=== PATIENT | female | born 1965 | race Caucasian/White ===

== ENCOUNTER → 2016-03-19 | Outpatient (CLI) | payer OTHER ==
--- NOTE | 2016-03-19 12:04 | US ---
EXAMINATION TYPE: US abdomen complete DATE OF EXAM: 03/19/2016 10:49 AM COMPARISON: NONE CLINICAL HISTORY: 50-year-old female with constipation, abdominal pain TECHNIQUE: Multiple sonographic images of the abdomen were obtained. FINDINGS: Liver Length: 16.6cm Gallbladder Wall: 2.9 mm CBD: 0.4cm Spleen: 7.9cm Right Kidney: 10.5 x 4.2 x 5.3cm Left Kidney: 11.9 x 3.8 x 4.4cm Pancreas: visualized portions appear wnl Liver: Upper limits of normal in size with overall homogeneous echotexture. There is a mildly comple x cyst measuring 2.1 cm with some internal septations and posterior through transmission centrally in the liver. Gallbladder: No abnormal gallbladder distention, wall thickening, pericholecystic fluid, or shadowin g calculi. Evidence for sonographic Moss's sign: no CBD: Within normal limits. Spleen: Within normal limits. Right Kidney: No hydronephrosis. Left Kidney: No hydronephrosis. There is a 7 x 6 x 7 mm hyperechoic lesion at the lower pole. Upper IVC: Within noWithin normal limits.rta: No aneurysm. IMPRESSION: 1. Liver at the upper limits of normal in size. A 2.1 cm mildly complex cyst is present centrally in the liver. This can be reassessed in 6 months as a conservative measure. 2. A 7 mm hyperechoic lesion in the lower pole left kidney. This may represent an AML. As RCC can unc ommonly present as an echogenic lesion on ultrasound, a 3-6 month follow-up ultrasound is recommended to reassess this area.
== END | disposition home or self-care (01) ==
LOC: RADUSWWP 10:00
PROVIDERS: ATTEND Internal Medicine
DX: K76.89 Other specified diseases of liver (principal); N28.89 Other specified disorders of kidney and ureter
CPT/HCPCS: 76700

== ENCOUNTER → 2016-04-01 | Outpatient (CLI) | payer OTHER ==
--- NOTE | 2016-04-01 11:30 | CT ---
EXAMINATION TYPE: CT abdomen pelvis w con DATE OF EXAM: 04/01/2016 9:06 AM COMPARISON: Ultrasound abdomen 19 March 2016 HISTORY: Hepatomegaly and Kidney lesion CT DLP: 1318 mGycm Automated exposure control for dose reduction was used. TECHNIQUE: Helical acquisition of images from the lung bases through the pelvis have been completed. CONTRAST: Performed with Oral Contrast and with IV Contrast, patient injected with 100 ml mL of Omnipaque 300. FINDINGS: LUNG BASES: No significant abnormality is appreciated. AORTA: No significant abnormality is appreciated. LIVER/GB: Cystic focus within the left lobe measures 2.5 cm. Liver is enlarged, there is low attenuat ion likely due to fatty infiltration. Gallbladder is normal. PANCREAS: No significant abnormality is seen. SPLEEN: No significant abnormality is seen. ADRENALS: No significant abnormality is seen. KIDNEYS: No significant abnormality is seen., Follow-up as described in report The lesion described o n ultrasound report is not seen definitively REPRODUCTIVE ORGANS: Intrauterine contraceptive device appears well placed. Adnexal structures within normal limits. BOWEL: There is retained fecal debris present. Appendix is not seen. Sigmoid colon shows some wall t hickening, difficult to exclude and narrowing, mucosal lesion. The appendix is normal. Cecum somewhat redundant. FREE AIR: No Free Air visible ASCITES: None visible. PELVIC ADENOPATHY: None visualized. Possible Komal duct cyst present RETROPERITONEAL ADENOPATHY: No Retroperitoneal Adenopathy visible. URINARY BLADDER: No significant abnormality is seen. OSSEOUS STRUCTURES: Osteoarthritic changes present in the right hip greater than left. Degenerative disc changes are mild, present in the visualized spine. IMPRESSION: CORRELATE FOR FECAL STASIS. DIFFICULT TO EXCLUDE A MUCOSAL LESION IN THE SIGMOID COLON, CONSIDER ENDO SCOPY IF THIS HAS NOT BEEN PERFORMED. FATTY INFILTRATION OF THE LIVER, HEPATOMEGALY. POSTPROCEDURAL C HANGES. Additional findings above.
== END | disposition home or self-care (01) ==
LOC: RADCTMAIN 08:24
PROVIDERS: ATTEND Internal Medicine
DX: R16.0 Hepatomegaly, not elsewhere classified (principal); K76.0 Fatty (change of) liver, not elsewhere classified; Z98.890 Other specified postprocedural states
CPT/HCPCS: 74177; Q9967

== ENCOUNTER → 2016-10-12 | Outpatient (CLI) | payer OTHER ==
--- NOTE | 2016-10-13 09:24 | MM ---
Reason for exam: screening (asymptomatic). Last mammogram was performed 1 year and 5 months ago. History: Family history of breast cancer in maternal aunt. Benign left US cyst aspiration of the left breast, June 27, 2010. Cyst aspiration of the left breast, 2006. Took hormonal contraceptives for 3 years beginning at age 14. Physical Findings: A clinical breast exam by your physician is recommended on an annual basis and results should be correlated with mammographic findings. MG 3D Screening Mammo W/Cad Bilateral CC and MLO view(s) were taken. Prior study comparison: May 15, 2015, bilateral MG screening mammo w CAD. August 25, 2013, bilateral MG screening mammo w CAD. July 27, 2012, CAD bilateral diagnostic mammogram. The breast tissue is extremely dense which could obscure a lesion on mammography. There is no discrete abnormality. ASSESSMENT: Negative, BI-RAD 1 RECOMMENDATION: Routine screening mammogram of both breasts in 1 year.
== END | disposition home or self-care (01) ==
LOC: RADMAMWWP 07:43
PROVIDERS: ATTEND Obstetrics & Gynecology
DX: Z12.31 Encounter for screening mammogram for malignant neoplasm of breast (principal)
CPT/HCPCS: 77063; G0202

== ENCOUNTER → 2017-03-29 | Outpatient (CLI) | payer OTHER ==
--- NOTE | 2017-04-06 12:50 | HM ---
HOLTER MONITOR REPORT [facility] [place] DATE OF SERVICE: 03/29/2017. INDICATION OF THE STUDY: Arrhythmia. The patient was monitored for 24 hours. The baseline rhythm appeared to be a sinus mechanism with a minimum heart rate of 52 beats per minute, max heart rate 151 beats per minute and average heart rate of 78 beats per minute. Ventricular ectopic events were not reported during this 24 hour monitoring. Supraventricular ectopic events were presented in less than 1% total beat count and presented as a single PAC, in couplets, triplets, and the patient had 3 runs of nonsustained SVT with the longest one of less than 1 minute at heart rate of 141 beats per minute. No evidence of any advanced AV block. No evidence of sinus pause or sinus arrest seen. CONCLUSION: 1. Sinus rhythm as a baseline mechanism. 2. No evidence of any ventricular ectopic events. 3. Rare supraventricular ectopic events. 4. The patient had multiple episodes of SVT presented with the longest one of less than 1 minute at a heart rate of 141 beats per minute. 5. There is no evidence of sinus pause or sinus arrest. MMODL / IJN: [id number] /
== END | disposition home or self-care (01) ==
LOC: RADECHMAIN 12:25
PROVIDERS: ATTEND Internal Medicine
DX: I47.1 Supraventricular tachycardia (principal); I49.3 Ventricular premature depolarization
CPT/HCPCS: 93225; 93226

== ENCOUNTER → 2017-11-10 | Outpatient (CLI) | payer OTHER ==
--- NOTE | 2017-11-12 11:55 | MM ---
Reason for exam: screening (asymptomatic). Last mammogram was performed 1 year and 1 month ago. History: Family history of breast cancer in maternal aunt. Benign left US cyst aspiration of the left breast, June 27, 2010. Cyst aspiration of the left breast, 2006. Took hormonal contraceptives for 3 years beginning at age 14. Physical Findings: A clinical breast exam by your physician is recommended on an annual basis and results should be correlated with mammographic findings. MG Screening Mammo w CAD Bilateral CC and MLO view(s) were taken. Prior study comparison: October 12, 2016, bilateral MG 3d screening mammo w/cad. May 15, 2015, bilateral MG screening mammo w CAD. The breast tissue is extremely dense which could obscure a lesion on mammography. No significant changes when compared with prior studies. ASSESSMENT: Benign, BI-RAD 2 RECOMMENDATION: Routine screening mammogram of both breasts in 1 year.
== END | disposition home or self-care (01) ==
LOC: RADMAMWWP 12:30
PROVIDERS: ATTEND Obstetrics & Gynecology
DX: Z12.31 Encounter for screening mammogram for malignant neoplasm of breast (principal); Z80.3 Family history of malignant neoplasm of breast
CPT/HCPCS: 77067

== ENCOUNTER → 2018-01-12 | Outpatient (CLI) | payer OTHER ==
[2018-01-12 10:50] LABS: Basophils % (A) 1 %; Eosinophils # (A) 0.2 k/uL (0-0.7); Eosinophils % (A) 7 %; HCT 39.1 % (34.0-46.0); HGB 13.2 gm/dL (11.4-16.0); Lymphocytes # (A) 1.2 k/uL (1.0-4.8); Lymphocytes % (A) 35 %; MCH 31.3 pg (25.0-35.0); MCHC 33.7 g/dL (31.0-37.0); Mean Platelet Volume 6.5; Monocytes # (A) 0.2 k/uL (0-1.0); Monocytes % (A) 6 %; Neutrophils # (A) 1.8 k/uL (1.3-7.7); Neutrophils % (A) 49 %; Platelet Count 348 k/uL (150-450); RDW 12.6 % (11.5-15.5); WBC 3.6 k/uL (3.8-10.6)
[2018-01-12 17:16] LABS: Albumin 4.4 g/dL (3.80-4.90); Albumin/Globulin Ratio 2.32 (1.20-2.10); Anion Gap 7.8 mmol/L (4.00-12.00); Calcium 9.3 mg/dL (8.7-10.3); Carbon Dioxide 26.2 mmol/L (21.6-31.8); Globulin 1.9 g/dL (2.1-3.7); Potassium 4.3 mmol/L (3.5-5.5); Total Bilirubin 0.4 mg/dL (0.3-1.2); Total Protein 6.3 g/dL (6.2-8.2)
[2018-01-12 18:25] LABS: Cancer Antigen 19-9 7.3 U/mL (0.0-34.9)
== END | disposition home or self-care (01) ==
LOC: LABWHC1 09:58
PROVIDERS: ATTEND Internal Medicine Gastroenterology
DX: K76.89 Other specified diseases of liver (principal)
CPT/HCPCS: 36415; 80053; 82105; 82378; 85025; 86301; 86304

== ENCOUNTER → 2018-04-05 | Outpatient (CLI) | payer OTHER ==
[2018-04-05 16:20] LABS: HCT 39.3 % (34.0-46.0); HGB 13.3 gm/dL (11.4-16.0); MCH 31.5 pg (25.0-35.0); MCHC 33.7 g/dL (31.0-37.0); MCV 93.4 fL (80.0-100.0); Mean Platelet Volume 6.5; Platelet Count 371 k/uL (150-450); RBC 4.21 m/uL (3.80-5.40); RDW 12.7 % (11.5-15.5); WBC 5.5 k/uL (3.8-10.6)
[2018-04-05 16:25] LABS: Potassium 4.1 mmol/L (3.5-5.1)
== END ==
LOC: LABPAT 15:40
PROVIDERS: ATTEND Internal Medicine Interventional Cardiology
DX: Z01.812 Encounter for preprocedural laboratory examination (principal); I47.1 Supraventricular tachycardia; R07.89 Other chest pain
CPT/HCPCS: 36415; 80051; 82565; 84520; 85027

== ENCOUNTER 2018-04-19 06:35 | Day surgery (SDC) | payer OTHER ==
[2018-04-18 12:19] VITALS: BMI 24.7
[~2018-04-19 06:35] MED LIST: ALPRAZolam 0.25 MG TAB PO PRN; ALPRAZolam 0.5 MG TAB PO PRN; ASPIRIN 325 MG TAB PO STA; ATORVASTATIN 80 MG TAB PO STA; NITROGLYCERIN SL TABS 0.4 MG TAB SUBLINGUAL PRN; SODIUM CHLORIDE 0.9% 1,000 ML in EMPTY BAG 1 BAG IV ONE
[2018-04-19 07:14] VITALS: TEMP 97.7
[2018-04-19] MEDS ORDERED: VERAPAMIL 2.5 MG/ML 2 ML AMP ONE (07:42)
[2018-04-19] MEDS ORDERED: HEPARIN SODIUM 1,000 UN/ML (10ML VL) ONE (07:42)
[2018-04-19] MEDS ORDERED: LIDOCAINE 1% INJ 10MG/ML (20 ML MDV) ONE (07:45)
[2018-04-19] MEDS: MIDAZOLAM 2 MG/2 ML VIAL IVP ONE ×2 (07:53→07:56)
[2018-04-19] MEDS ORDERED: LIDOCAINE 1% INJ 10MG/ML (20 ML MDV) SQ ONE ×2 (07:54)
[2018-04-19] MEDS ORDERED: VERAPAMIL SYRINGE (5 MG/10 ML) INTRAARTER ONE (07:55)
[2018-04-19] MEDS ORDERED: HEPARIN SODIUM 1,000 UN/ML (10ML VL) IV ONE (07:58)
[2018-04-19] MEDS ORDERED: IOPAMIDOL-370 100ML BTL INJ ONE (08:02)
[2018-04-19] MEDS ORDERED: RX INFO: IV CONTRAST WAS GIVEN 1 EACH MISC MISCELLANE PRN (08:09)
[2018-04-19] MEDS ORDERED: SODIUM CHLORIDE 0.9% 1,000 ML IV SCH (08:15)
--- NOTE | 2018-04-19 09:06 | LTR ---
April 19, 2018 Re: Concetta Bowman Dear Dr. Matias: Ms. Concetta Bowman underwent a heart catheterization today and that revealed mild nonobstructive coronary artery disease. I want to thank you for allowing me to participate in her care and please do not hesitate to call for question or concern. Sincerely, MD SHADIA Ingram / MCKAYLA: [id number] /
--- NOTE | 2018-04-19 09:06 | CC ---
CARDIAC CATHETERIZATION REPORT DATE OF SERVICE: 04/19/2018 PERFORMING PHYSICIAN: Joel Lerma MD, Chemical Processor. PROCEDURE PERFORMED: 1. Selective right and left coronary angiogram. 2. Left heart catheterization. INDICATION: This is a pleasant 52-year-old female patient who was referred for further evaluation of chest discomfort. She underwent a myocardial perfusion imaging stress test and that revealed ischemia and because of that, a heart catheterization was advised. APPROACH: Right radial artery. COMPLICATION: None. LEVEL OF SEDATION: Moderate with sedation length of 14 minutes. PROCEDURE DESCRIPTION: After obtaining an informed consent, the patient was brought to the cardiac laborer tanbark. The right radial artery was cannulated using micropuncture technique and a micropuncture wire passed easily, then I placed a 5-Amharic sheath in the right radial artery. After that, I did give the patient 2 mg of verapamil IA and 8000 units of heparin IV. Subsequently, selective right and left coronary angiogram performed using JR4 and JL3.5 catheters. Left heart catheterization was performed using the JR4, which flipped into the LV, then I did pullback across the aortic valve. The procedure was completed without any complication. CORONARY ANGIOGRAM: The right coronary artery is a medium caliber vessel and it is a dominant vessel. It is angiographically normal. The left main is angiographically normal, it bifurcates into left circumflex, and left anterior descending artery. The left circumflex is a large caliber vessel. It is a nondominant vessel. The proximal circumflex appeared to be angiographically normal and gives rise into the first OM branch which is a large caliber vessel, seems to be angiographically normal. The mid circumflex is normal and the circumflex distally appeared to be normal and gives rise into a second OM branch which appeared to be angiographically normal and the circumflex distally appeared to be normal as well. The LAD, the proximal LAD has eccentric lesion, appeared to be in the range of 30%. The mid LAD appeared to be normal and the LAD distally appeared to be normal. The LAD gives rise into two diagonal branches, they appeared to be angiographically normal. HEMODYNAMICS: The left ventricular end-diastolic pressure was about 12 mmHg without gradient across the aortic valve. CONCLUSION: 1. Mild nonobstructive disease involving the proximal LAD. 2. Normal left ventricular end-diastolic pressure. POSTPROCEDURE MANAGEMENT: 1. Medical treatment. 2. Follow up with the patient. MMODL / IJN: [id number] /
[2018-04-19 09:47] VITALS: RESP 16
[2018-04-19] MEDS ORDERED: ACETAMINOPHEN TAB 500 MG TAB PO STA (11:19)
[2018-04-19 14:36] VITALS: BP 118/68; PULSE 56
== END 2018-04-19 13:10 | disposition home or self-care (01) ==
LOC: CATHCVL 06:35
PROVIDERS: ATTEND Internal Medicine Interventional Cardiology
DX: I25.110 Atherosclerotic heart disease of native coronary artery with unstable angina pectoris (principal); I47.1 Supraventricular tachycardia; Z79.890 Hormone replacement therapy; Z79.51 Long term (current) use of inhaled steroids; Z79.899 Other long term (current) drug therapy
CPT/HCPCS: 93458; C1894; J2250; J2001; J1644; Q9967

== ENCOUNTER → 2018-12-16 | Outpatient (CLI) | payer OTHER ==
--- NOTE | 2018-12-19 09:44 | MM ---
Reason for exam: screening (asymptomatic). Last mammogram was performed 1 year and 1 month ago. History: Family history of breast cancer in maternal aunt. Benign left US cyst aspiration of the left breast, June 27, 2010. Cyst aspiration of the left breast, 2006. Took hormonal contraceptives for 3 years beginning at age 14. Taking estrogen for 3 years. Physical Findings: A clinical breast exam by your physician is recommended on an annual basis and results should be correlated with mammographic findings. MG Screening Mammo w CAD Bilateral CC and MLO view(s) were taken. XCCL view(s) were taken of the right breast. Prior study comparison: November 10, 2017, bilateral MG screening mammo w CAD. October 12, 2016, bilateral MG 3d screening mammo w/cad. The breast tissue is extremely dense which could obscure a lesion on mammography. No significant changes when compared with prior studies. ASSESSMENT: Benign, BI-RAD 2 RECOMMENDATION: Routine screening mammogram of both breasts in 1 year.
== END | disposition home or self-care (01) ==
LOC: RADMAMWWP 16:33
PROVIDERS: ATTEND Obstetrics & Gynecology
DX: Z12.31 Encounter for screening mammogram for malignant neoplasm of breast (principal); Z80.3 Family history of malignant neoplasm of breast
CPT/HCPCS: 77067

== ENCOUNTER → 2020-05-02 | Outpatient (CLI) | payer OTHER ==
--- NOTE | 2020-05-03 13:26 | MM ---
Reason for exam: screening (asymptomatic). Last mammogram was performed 1 year and 4 months ago. History: Patient is postmenopausal. Family history of breast cancer in maternal aunt. Benign left US cyst aspiration of the left breast, June 27, 2010. Cyst aspiration of the left breast, 2006. Took hormonal contraceptives for 3 years beginning at age 14. Taking estrogen for 3 years. Physical Findings: A clinical breast exam by your physician is recommended on an annual basis and results should be correlated with mammographic findings. MG Screening Mammo w CAD Bilateral CC and MLO view(s) were taken. Prior study comparison: December 16, 2018, bilateral MG screening mammo w CAD. November 10, 2017, bilateral MG screening mammo w CAD. The breast tissue is heterogeneously dense. This may lower the sensitivity of mammography. There is no discrete abnormality. No significant changes when compared with prior studies. ASSESSMENT: Negative, BI-RAD 1 RECOMMENDATION: Routine screening mammogram of both breasts in 1 year.
== END | disposition home or self-care (01) ==
LOC: RADMAMWWP 07:10
PROVIDERS: ATTEND Obstetrics & Gynecology
DX: Z12.31 Encounter for screening mammogram for malignant neoplasm of breast (principal)
CPT/HCPCS: 77067

== ENCOUNTER → 2021-02-11 | Outpatient (CLI) | payer OTHER ==
--- NOTE | 2021-02-11 08:36 | US ---
EXAMINATION TYPE: US abdomen comp/pelvis limited DATE OF EXAM: 02/11/2021 COMPARISON: CT abdomen and pelvis April 01, 2016 CLINICAL HISTORY: R31.1 Benign essential microscopic hematuria. Hematuria- microscopic EXAM MEASUREMENTS: Liver Length: 16.4 cm Gallbladder Wall: 0.2 cm CBD: 0.4 cm Spleen: 7.8 cm Right Kidney: 10.6 x 4.6 x 4.5 cm Left Kidney: 10.9 x 5.3 x 5.5 cm Pancreas: Tail obscured by bowel gas Liver: Right/mid lobe cystic lesion = 3.1 x 3.2 x 2.2 cm. Gallbladder: wnl CBD: wnl Spleen: limited visualization due to bowel gas Right Kidney: Medial anechoic lesion at hilum- 1.3 x 1.0 cm. Left Kidney: No hydronephrosis or masses seen Upper IVC: wnl Abd Aorta: Mid obscured by overlying bowel gas Bladder: distended, anechoic Bilateral Jets Seen Visualized portion of pancreas within normal limits. Significant portions obscured by overlying bowel gas. The liver shows 3.1 cm thin-walled cyst with lobulated contour and internal thin septa respondi ng to CT axial image 21. No intrahepatic or extrahepatic biliary dilatation. Gallbladder within jessie l limits. No AAA. No hydronephrosis seen bilaterally. No shadowing hyperechoic foci or nephrolithiasi s. Technologist reynolds a central 1.0 cm hypoechoic anechoic areas could reflect prominent cortex are t iny cysts, too small to definitively characterize. Bladder is satisfactorily distended with visualiza tion of bilateral distal ureter jets. Spleen not well visualized on this study. IMPRESSION: Source of hematuria not identified. If symptoms persist further investigation with CT uro gram would be warranted.
--- NOTE | 2021-02-11 08:41 | US ---
EXAMINATION TYPE: US pelvic complete DATE OF EXAM: 02/11/2021 COMPARISON: CT abdomen and pelvis April 01, 2016. CLINICAL HISTORY: R31.1. Microscopic hematuria, no menses per patient. Pain. TECHNIQUE: Transabdominal (TA). Date of LMP: Unknown, EXAM MEASUREMENTS: Uterus: 7.5 x 4.9 x 3.7 cm Endometrial Stripe: 0.3 cm Right Ovary: 2.1 x 1.6 x 1.7 cm Left Ovary: 2.6 x 2.0 x 1.6 cm 1. Uterus: Anteverted wnl 2. Endometrium: wnl 3. Right Ovary: wnl 4. Left Ovary: wnl 5. Bilateral Adnexa: wnl 6. Posterior cul-de-sac: no free fluid Cervix- wnl Anteverted uterus. Central linear density in the endometrium likely reflects retained IUD. No free fl uid in cul-de-sac. Ovaries symmetric and normal in size. No suspicious extra ovarian adnexal lesions. IMPRESSION: Unremarkable transabdominal pelvic ultrasound study.
== END | disposition home or self-care (01) ==
LOC: RADUSWWP 06:55
PROVIDERS: ATTEND Internal Medicine
DX: R31.1 Benign essential microscopic hematuria (principal)
CPT/HCPCS: 76700; 76856; 76857

== ENCOUNTER → 2022-06-11 | Outpatient (CLI) | payer OTHER ==
--- NOTE | 2022-06-11 10:17 | US ---
EXAMINATION TYPE: US extremity nonvasc mass LT DATE OF EXAM: 06/11/2022 COMPARISON: NONE CLINICAL HISTORY: 56-year-old female Lump R22. Patient states having a soft palpable, left arm x few years but has been getting bigger. TECHNIQUE: Targeted ultrasound along the patient's left arm palpable site. FINDINGS: Composer Teaching Artist notes: Patients area of concern scanned. Superficial nonvascular, compressibl e isoechoic lesion seen = 3.6 x 3.6 x 1.3 cm IMPRESSION: Findings suggest a 3.6 x 3.6 x 1.3 cm subcutaneous lipoma corresponding to the patient's left mid arm palpable site. If this area remains symptomatic or further growth is noted, consider surgical evalua tion.
== END | disposition home or self-care (01) ==
LOC: RADUSWWP 09:09
PROVIDERS: ATTEND Internal Medicine
DX: N30.20 Other chronic cystitis without hematuria (principal); R22.2 Localized swelling, mass and lump, trunk

== ENCOUNTER → 2022-10-07 | Outpatient (CLI) | payer OTHER ==
--- NOTE | 2022-10-08 22:57 | MM ---
Reason for Exam: Screening (asymptomatic). Last mammogram was performed 1 year(s) and 4 month(s) ago. Patient History: Menarche at age 8. First Full-Term at age 20. Postmenopausal. Currently using Estrogen, beginning at age 49 for 6 years. Hormonal Contraceptives for 3 years from age 14 until age 17. 2006, Cyst Aspiration on the Left side. 06/27/2010, Benign Cyst Aspiration on the left side. Paternal aunt had breast cancer. Risk Values: Drea 5 year model risk: 1.3%. NCI Lifetime model risk: 7.6%. Prior Study Comparison: 12/16/2018 Bilateral Screening Mammogram, [facility]. 05/02/2020 Bilateral Screening Mammogram, [facility]. 07/04/2021 Bilateral Screening Mammogram, [facility]. Tissue Density: The breast tissue is heterogeneously dense. This may lower the sensitivity of mammography. Findings: Analyzed By CAD. There is no suspicious group of microcalcifications or new suspicious mass in either breast. Overall Assessment: Negative, BI-RAD 1 Management: Screening Mammogram of both breasts in 1 year. . Patient should continue monthly self-breast exams. A clinical breast exam by your physician is recommended on an annual basis. This exam should not preclude additional follow-up of suspicious palpable abnormalities. Note on Drea scores and lifetime risk: 1. A Drea score greater than 3% is considered moderate risk. If this is the case, consider specialist referral to assess eligibility for a risk reducing agent. 2. If overall lifetime risk for the development of breast cancer is 20% or higher, the patient may qualify for future screening with alternating mammogram and breast MRI. Electronically signed and approved by: Geno Guzman M.D. Radiologist
== END | disposition home or self-care (01) ==
LOC: RADMAMWWP 16:28
PROVIDERS: ATTEND Obstetrics & Gynecology
DX: Z12.31 Encounter for screening mammogram for malignant neoplasm of breast (principal); Z78.0 Asymptomatic menopausal state; Z80.3 Family history of malignant neoplasm of breast
CPT/HCPCS: 77067

== ENCOUNTER → 2023-12-14 | Outpatient (CLI) | payer OTHER ==
--- NOTE | 2023-12-15 12:27 | MM ---
Reason for Exam: Screening (asymptomatic). Last mammogram was performed 1 year(s) and 2 month(s) ago. Patient History: Menarche at age 8. First Full-Term at age 20. Postmenopausal. Patient has history of breast feeding. Currently using Estrogen, beginning at age 49 for 6 years. Hormonal Contraceptives for 3 years from age 14 until age 17. 2006, Cyst Aspiration on the Left side. 06/27/2010, Benign Cyst Aspiration on the left side. Paternal aunt had breast cancer. Risk Values: Drea 5 year model risk: 1.4%. NCI Lifetime model risk: 7.4%. Prior Study Comparison: 05/02/2020 Bilateral Screening Mammogram, [facility]. 07/04/2021 Bilateral Screening Mammogram, [facility]. 10/07/2022 Bilateral MG screening mammo w CAD, [facility]. Tissue Density: The breasts are heterogeneously dense, which may obscure small masses. Findings: Analyzed By CAD. There is no suspicious group of microcalcifications or new suspicious mass in either breast. Overall Assessment: Benign, BI-RAD 2 Management: Screening Mammogram of both breasts in 1 year. . Patient should continue monthly self-breast exams. A clinical breast exam by your physician is recommended on an annual basis. This exam should not preclude additional follow-up of suspicious palpable abnormalities. Note on Drea scores and lifetime risk: 1. A Drea score greater than 3% is considered moderate risk. If this is the case, consider specialist referral to assess eligibility for a risk reducing agent. 2. If overall lifetime risk for the development of breast cancer is 20% or higher, the patient may qualify for future screening with alternating mammogram and breast MRI. [facility], , 12/15/2023 12:24 PM. Electronically signed and approved by: Kehinde Stallings M.D. Radiologis
== END | disposition home or self-care (01) ==
LOC: RADMAMWWP 09:27
PROVIDERS: ATTEND Obstetrics & Gynecology
CPT/HCPCS: 77067

== ENCOUNTER → 2024-07-26 | Outpatient (CLI) | payer OTHER ==
--- NOTE | 2024-07-26 08:45 | US ---
EXAMINATION TYPE: US abdomen limited DATE OF EXAM: 07/26/2024 COMPARISON: 02/11/2021 CLINICAL INDICATION: Female, 58 years old with history of R10.9 UNSPECIFIED ABDOMINAL PAIN; Right leyda e pain. Hx liver cyst. TECHNIQUE: Grayscale and color Doppler imaging of the right upper quadrant was performed. FINDINGS: EXAM MEASUREMENTS: Liver Length: 15.5 cm Gallbladder Wall: 0.2 cm CBD: 0.8 cm Right Kidney: 10.2 x 4.6 x 4.9 cm Pancreas: wnl Liver: Right lobe cyst with thin internal septation, measures 4.2 x 4.5 x 3.9 cm Gallbladder: no stones or wall thickening Evidence for sonographic Moss's sign: neg CBD: Mildly dilated Right Kidney: No hydronephrosis or masses seen, limited due to bowel gas IMPRESSION: 1. Mildly dilated bile duct at 8 mm. Findings may be chronic for the patient. Correlate with alkaline phosphatase and bilirubin levels to exclude biliary obstruction. 2. No gallstones or gallbladder hydrops. 3. Incidental 4.5 cm benign-appearing right liver lobe cyst. Given minimal internal complexity, a 6-1 2 month follow-up ultrasound can reassess. [facility], , 07/26/2024 8:43 AM
== END | disposition home or self-care (01) ==
LOC: RADUSWWP 07:29
PROVIDERS: ATTEND Internal Medicine
DX: K83.8 Other specified diseases of biliary tract (principal)
CPT/HCPCS: 76705